=== PATIENT | male | born 1950 | race Caucasian/White ===

== ENCOUNTER → 2016-05-12 | Outpatient (CLI) | payer OTHER | LOC: BHLMT 11:30 | PROVIDERS: ATTEND Internal Medicine Cardiovascular Disease | DX: I48.0 Paroxysmal atrial fibrillation (principal); I10 Essential (primary) hypertension | CPT/HCPCS: 93005-PO ==

== ENCOUNTER → 2016-05-25 | Outpatient (CLI) | payer OTHER | LOC: BHFA 13:30 | PROVIDERS: ATTEND Internal Medicine Cardiovascular Disease | DX: I48.0 Paroxysmal atrial fibrillation (principal) ==

== ENCOUNTER → 2016-07-08 | Outpatient (CLI) | payer OTHER | LOC: BHLMT 14:00 | PROVIDERS: ATTEND Internal Medicine Cardiovascular Disease | DX: I48.0 Paroxysmal atrial fibrillation (principal) | CPT/HCPCS: 93005-PO ==

== ENCOUNTER → 2016-08-12 | Outpatient (CLI) | payer OTHER | LOC: BHLMT 14:30 | PROVIDERS: ATTEND Internal Medicine Cardiovascular Disease | DX: I48.91 Unspecified atrial fibrillation (principal) | CPT/HCPCS: 93005-PO ==

== ENCOUNTER 2016-08-18 12:12 | Day surgery (SDC) | payer OTHER ==
[2016-08-18] MEDS ORDERED: fentaNYL 100 MCG/2 ML INJ IVP ONE (12:19)
[2016-08-18] MEDS ORDERED: NS 500 ML IV ONE (12:19)
[2016-08-18] MEDS ORDERED: MIDAZOLAM 2 MG/2 ML VIAL IVP ONE (12:19)
[2016-08-18] MEDS ORDERED: PROPOFOL 200 MG/20 ML VIAL IVP ONE (12:19)
--- NOTE | 2016-08-18 12:38 | CPEKG ---
Heart Rate: 67 RR Interval: 896 QRSD Interval: 86 QT Interval: 404 QTC Interval: 427 QRS [place]: 37 T Wave [place]: 14 EKG Severity - ABNORMAL ECG - EKG Impression: ATRIAL FIBRILLATION EKG Impression: ANTERIOR INFARCT, OLD Electronically Signed By: Koki Bland 18-Aug-2016 16:06:28
[2016-08-18] MEDS ORDERED: ATROPINE SULFATE 1 MG/10 ML SYR ONE (13:04)
[2016-08-18 13:22] LABS: INR 1.25 (0.83-1.16); PROTIME(PATIENT) 15.7 SEC (12.0-15.0)
[2016-08-18 13:23] LABS: APTT 32.6 SEC (23.0-38.0)
[2016-08-18 13:35] LABS: ANION GAP 10 mEq/L (8-16); CALCIUM 9.3 mg/dL (8.5-10.4); CARBON DIOXIDE 25 mEq/l (22-31); CHLORIDE 108 mEq/L (97-110); CREATININE 1.3 mg/dL (0.7-1.3); GLOMERULAR FILTRATION RATE 55; GLUCOSE 83 mg/dL (70-100); MAGNESIUM 1.6 mg/dL (1.6-2.3); POTASSIUM 4.9 mEq/L (3.5-5.2); SODIUM 143 mEq/L (134-144)
--- NOTE | 2016-08-18 13:46 | PDTEE1 ---
ZACHERY Cardioversion Procedure Procedure: Electrical Cardioversion Indications: Atrial Fibrillation Consent: Signed and in Chart Anticoagulation: Eliquis Procedural Details: Pads were placed in anterior-posterior position. ZACHERY probe was advanced and standard images obtained. There is no evidence of left atrial or left atrial appendage thrombus. Synchronized cardioversion attempt #1: 200J Synchronized cardioversion attempt #2: 300J Results: Normal sinus rhythm Conclusions: Successful Cardioversion
--- NOTE | 2016-08-18 13:50 | CPEKG ---
Heart Rate: 51 RR Interval: 1176 P-R Interval: 224 QRSD Interval: 86 QT Interval: 440 QTC Interval: 406 P [place]: -27 QRS [place]: 37 T Wave [place]: 15 EKG Severity - ABNORMAL ECG - EKG Impression: SINUS RHYTHM EKG Impression: FIRST DEGREE AV BLOCK EKG Impression: ANTERIOR INFARCT, OLD Electronically Signed By: Koki Bland 18-Aug-2016 16:06:40
== END 2016-08-18 15:47 | disposition home or self-care (01) ==
LOC: FCATH 12:12
PROVIDERS: ATTEND Internal Medicine Interventional Cardiology
PROC: 5A2204Z Restoration of Cardiac Rhythm, Single (ICD-10-PCS; principal; 2016-08-18)
DX: I48.0 Paroxysmal atrial fibrillation (principal); I10 Essential (primary) hypertension; Z79.01 Long term (current) use of anticoagulants; Z96.651 Presence of right artificial knee joint
CPT/HCPCS: J0461; J2704

== ENCOUNTER → 2016-09-05 | Outpatient (CLI) | payer OTHER | LOC: BHLMT 11:00 | PROVIDERS: ATTEND Internal Medicine Cardiovascular Disease | DX: I48.0 Paroxysmal atrial fibrillation (principal); I10 Essential (primary) hypertension | CPT/HCPCS: 93005-PO ==

== ENCOUNTER → 2016-10-26 | Outpatient (CLI) | payer OTHER | LOC: SBRMNEURO 21:00 | PROVIDERS: ATTEND Psychiatry & Neurology Sleep Medicine | DX: G47.33 Obstructive sleep apnea (adult) (pediatric) (principal); G47.61 Periodic limb movement disorder; G47.34 Idiopathic sleep related nonobstructive alveolar hypoventilation ==

== ENCOUNTER → 2016-12-09 | Outpatient (CLI) | payer OTHER | LOC: BHLMT 13:00 | PROVIDERS: ATTEND Internal Medicine Cardiovascular Disease | DX: I48.1 Persistent atrial fibrillation (principal) | CPT/HCPCS: 93005-PO ==

== ENCOUNTER → 2016-12-22 | Outpatient (CLI) | payer OTHER | LOC: BHLMT 11:00 | PROVIDERS: ATTEND Internal Medicine Cardiovascular Disease | DX: I48.91 Unspecified atrial fibrillation (principal) | CPT/HCPCS: 93225-PO; 93226-PO ==

== ENCOUNTER 2017-03-16 06:43 | Day surgery (SDC) | payer OTHER ==
[2017-03-16] MEDS ORDERED: MIDAZOLAM 2 MG/2 ML VIAL IVP ONE (06:47)
[2017-03-16] MEDS ORDERED: fentaNYL 100 MCG/2 ML INJ IVP ONE (06:47)
[2017-03-16] MEDS ORDERED: ATROPINE SULFATE 1 MG/10 ML SYR IVP ONE (06:47)
[2017-03-16] MEDS ORDERED: NS 500 ML IV ONE (06:47)
--- NOTE | 2017-03-16 07:11 | CPEKG ---
Heart Rate: 72 RR Interval: 833 QRSD Interval: 94 QT Interval: 432 QTC Interval: 473 QRS [place]: 61 T Wave [place]: 5 EKG Severity - ABNORMAL ECG - EKG Impression: ATRIAL FIBRILLATION EKG Impression: LOW VOLTAGE THROUGHOUT EKG Impression: BORDERLINE R WAVE PROGRESSION, ANTERIOR LEADS EKG Impression: BORDERLINE T ABNORMALITIES, INFERIOR LEADS Electronically Signed By: Koki Bland 16-Mar-2017 10:43:43
[2017-03-16] MEDS ORDERED: APIXABAN 5 MG TAB PO ONE (07:30)
[2017-03-16 07:33] LABS: INR 1.25 (0.83-1.16); PROTIME(PATIENT) 15.9 SEC (12.0-15.0)
[2017-03-16 07:34] LABS: APTT 35.3 SEC (23.0-38.0)
[2017-03-16 07:49] LABS: ANION GAP 13 mEq/L (8-16); CALCIUM 9.6 mg/dL (8.5-10.4); CARBON DIOXIDE 25 mEq/l (22-31); CHLORIDE 108 mEq/L (97-110); CREATININE 1.8 mg/dL (0.7-1.3); GLOMERULAR FILTRATION RATE 38; GLUCOSE 102 mg/dL (70-100); MAGNESIUM 1.6 mg/dL (1.6-2.3); POTASSIUM 4.7 mEq/L (3.5-5.2); SODIUM 146 mEq/L (134-144)
[2017-03-16] MEDS ORDERED: PROPOFOL 200 MG/20 ML VIAL ONE (08:17)
--- NOTE | 2017-03-16 08:24 | PDANEPAE ---
ANE History of Present Illness 66 year old male w/ PMHx of A. Fib (on anti-coagulation), HTN, LIS (on CPAP) and obesity presents for cardioversion. ANE Past Medical History - Cardiovascular History Hx Hypertension: Yes Hx Arrhythmias: Yes Hx Chest Pain: No Hx Coronary Artery / Peripheral Vascular Disease: No Hx CHF / Valvular Disease: No Hx Palpitations: No Cardiovascular History Comment: A. Fib - Pulmonary History Hx COPD: No Hx Asthma/Reactive Airway Disease: No Hx Recent Upper Respiratory Infection: No Hx Oxygen in Use at Home: No Hx Sleep Apnea: Yes Pulmonary History Comment: Does utilize CPAP. - Neurologic History Hx Cerebrovascular Accident: No Hx Seizures: No Hx Dementia: No - Endocrine History Hx Diabetes: No Hypothyroid: No Hyperthyroid: No Obesity: moderate - Liver History Hx Hepatic Disorders: No - Neurological & Psychiatric Hx Hx Neurological and Psychiatric Disorders: No - Cancer History Hx Cancer: No ANE Review of Systems Review of systems is: negative Review of Systems: - Exercise capacity Exercise capacity: >=4 METS ANE Patient History - Allergies Allergies/Adverse Reactions: No Known Allergies Allergy (Unverified 12/09/15 14:46) - Home Medications Home medications: home medication list seen and reviewed Home Medications: Allopurinol 100 mg PO 03/16/17 [Last Taken 03/15/17 21:00] Amiodarone HCl 200 mg PO 03/16/17 [Last Taken 03/15/17 21:00] Carvedilol 3.125 mg PO 03/16/17 [Last Taken 03/15/17 21:00] Eliquis 5 mg PO BID 03/16/17 [Last Taken 03/15/17 21:00] - NPO status NPO Status: no food or drink >8 hours - Anes Hx Anes Hx: no prior problems - Smoking Hx Smoking Status: Never smoked - Alcohol Use Alcohol Use: Rarely - Family Anes Hx Family Anes Hx: neg - N/A ANE Labs/Vital Signs - Labs Result Diagrams: 03/16/17 07:00 - Vital Signs Vital Signs: reviewed preoperatively; see RN documention for details Height: 180 cm Weight: 113.4 kg ANE Physical Exam - Airway Neck exam: FROM Mallampati Score: Class 2 Mouth exam: dentures, collier, abnormal chin - Pulmonary Pulmonary: no respiratory distress - Cardiovascular Cardiovascular: irregularly irregular - ASA Status ASA Status: III ANE Anesthesia Plan Anesthesia Plan: GA with mask Total IV Anesthesia: Yes
--- NOTE | 2017-03-16 08:45 | PDHPUP ---
History & Physical Update H&P update statement: This history and physical update is based on an assessment of the patient which was completed after admission or registration (within 24 hours), but prior to the surgery/procedure. H&P update: H&P reviewed & patient examined, no change in patient's condition since H&P completed
--- NOTE | 2017-03-16 09:05 | POSTANESTH ---
Post Anesthetic Evaluation Cardiovascular Status: Normal, Stable, Similar to Pre-Op Cond Respiratory Status: Normal, Stable, Similar to Pre-op Cond. Level of Consciousness/Mental Status: Can Participate in Eval, Alert and Oriented Pain Control: Adequate, Prn Tx Ordered Nausea/Vomiting Control: Adequate, Prn Tx Ordered Complications Possibly Related to Anesthesia: None Noted
--- NOTE | 2017-03-17 08:51 | EPPROC ---
Electrophysiology Procedure Note: Procedure: DCCV Indication: AF Procedure: pt sedated by members of anesthesia staff. Once sedated, 200 J of synchronized DCCV performed. Pt returned to AF. Position of patches changed and two more attempts made. However, each time the pt converted back to AF without a single beat of SR. Conclusion: Unsuccessful CV
== END 2017-03-16 12:30 | disposition home or self-care (01) ==
LOC: FCATH 06:43
PROVIDERS: ATTEND Internal Medicine Cardiovascular Disease
PROC: 5A2204Z Restoration of Cardiac Rhythm, Single (ICD-10-PCS; principal; 2017-03-16)
DX: I48.1 Persistent atrial fibrillation (principal); Z79.01 Long term (current) use of anticoagulants; I10 Essential (primary) hypertension; G47.33 Obstructive sleep apnea (adult) (pediatric); E66.09 Other obesity due to excess calories; Z68.36 Body mass index [BMI] 36.0-36.9, adult; N40.0 Benign prostatic hyperplasia without lower urinary tract symptoms; K74.60 Unspecified cirrhosis of liver; Z96.651 Presence of right artificial knee joint
CPT/HCPCS: J0461; J2704

== ENCOUNTER → 2018-01-31 | Outpatient (CLI) | payer OTHER | LOC: BHFA 10:45 | PROVIDERS: ATTEND Physician Assistant Medical | DX: Z01.810 Encounter for preprocedural cardiovascular examination (principal); I48.2 Chronic atrial fibrillation; I10 Essential (primary) hypertension; G47.33 Obstructive sleep apnea (adult) (pediatric) ==